=== PATIENT | female | born 1945 | race Caucasian/White ===

== ENCOUNTER → 2023-11-19 15:36 | Outpatient (REF) | payer MEDICARE, OTHER, SELFPAY | LOC: WDC 15:36 | PROVIDERS: ATTENDING PHYSICIAN Family Medicine | DX: Z12.31 Encounter for screening mammogram for malignant neoplasm of breast (principal) | CPT/HCPCS: 77063; 77067 ==

== ENCOUNTER → 2023-11-29 14:30 | Outpatient (REF) | payer MEDICARE, OTHER, SELFPAY | LOC: RAD 14:30 | PROVIDERS: ATTENDING PHYSICIAN Family Medicine | DX: Z13.820 Encounter for screening for osteoporosis (principal); M81.0 Age-related osteoporosis without current pathological fracture | CPT/HCPCS: 77080 ==

== ENCOUNTER 2024-08-04 22:45 | Emergency (ER) | payer MEDICARE, OTHER, SELFPAY ==
[2024-08-04 22:52] VITALS: BP 120/72
--- NOTE | 2024-08-05 00:54 | ED.MUSCINJ ---
HPI-Injury
General
Chief Complaint: Fall
Source: patient
Exam Limitations: none
Time Seen by Provider: 08/05/24 00:53
Nursing documentation reviewed up to this point in time: agreed with
History of Present Illness-Injury
Initial Injury comments:
79-year-old female with history of CPAP use, HTN, HLD, NIDDM, glaucoma states 18 hours ago she slipped on paper in her kitchen, fell onto her left side, struck back of head on cabinet on way down. Denies feeling lightheaded or dizzy prior to fall.
Spent the next 18 hours trying to crawl and get her cane to get up to no avail. Finally called her friend this evening who called EMS.
Has pain in left wrist, elbow, hip and knee. Denies neck or back pain.
No LOC, not anticoagulated.
Past History
Past History
ED Past Medical History: HTN, Hypercholesterolemia, NIDDM and Other (sleep apnea, diverticulosis)
ED Past Surgical History: Appendectomy and Gynecological (right Oophorectomy and tube removed)
Social History
Tobacco: Non-smoker
Alcohol: None
Personal: Single
Living: alone
Review of Systems
Review of Systems
Allergies reviewed?: Yes
All Other Systems: ROS reviewed and negative except as documented in HPI and ROS
Constitutional: Denies fever
Respiratory: Denies trouble breathing
Cardiac: Denies chest pain or syncope
ABD/GI: Denies abdominal pain, nausea, vomiting or diarrhea
: Reports incontinence (chronic); Denies dysuria, frequency, difficulty voiding or urgency
Musculoskeletal: Reports other (pain left hip, wrist, elbow, knee.); Denies neck pain or back pain
Skin: Reports other (scrape left forearm)
Neurological: Reports no symptoms
Phy Exam
Physical Exam
Physical Exam:
GENERAL: No acute distress. A&Ox3.
CONSTITUTIONAL: Afebrile.
EYES: clear, conjunctivae normal
ENMT: moist mucus membranes, Pharynx nl, TMs normal
RESPIRATORY: Regular respirations, nonlabored, lungs clear.
CARDIOVASCULAR: Regular rate and rhythm, no murmurs, no rubs.
GI: Soft, nontender, normal BS
MUSCULOSKELETAL: No spinal bony tenderness. No significant left hip tenderness but groin pain with SLR. Tender left left wrist base of thumb. Left knee tender medially. Moves with ease. Well perfused.
SKIN: Warm, dry, pink
PSYCH: Normal mood and affect. Well kept, interactive and appropriate
NEUROLOGIC: Awake, alert and oriented. No focal neurological deficits. Strength equal throughout.
Injury Course
Orders/Labs/Results
Orders:
Orders
08/05/24 01:08
Hip, Left 2-3 Views [CR Hip - LT w/wo Pel 2-3 Vw*] Urgent
Comment:
Reason For Exam: pain after fall
Include a pelvis x-ray?: Yes
Knee, Left 4 or More Views [CR Knee - Left 4 Or More View*] Urgent
Comment:
Reason For Exam: pain after fall
Wrist, Left 3 Views CR [CR Wrist - Left Min 3 Views] Urgent
Comment:
Reason For Exam: pain after fall
08/05/24 01:13
CR Elbow - Left Min 3 Views Urgent
Comment:
Reason For Exam: pain after fall
08/05/24 01:26
CPK Isoenzyme Urgent
Complete Blood Count/With Diff Urgent
Comprehensive Metabolic Panel Urgent
08/05/24 02:09
0.9% Sodium Chloride 1000 ml [Nss] 1,000 ml IV BOLUS
08/05/24 03:14
Urinalysis Reflex To Culture Urgent
Date Specimen was Collected: 08/05/24
Time Specimen was Collected: 03:13
Urine Microscopic Reflex Cult Urgent
Urine Culture Urgent
RUBINA Source: U
Specimen Description:
Date Specimen was Collected: 08/05/24
Time Specimen was Collected: 03:13
Abnormal Lab Results
08/05/24 08/05/24
01:26 03:14
WBC 12.7 H 10^3/uL
(4.8-10.8)
Abs Immat Gran (auto) 0.1 H 10^3/uL
(0-0.05)
Absolute Neuts (auto) 9.5 H 10^3/uL
(1.4-6.5)
Absolute Monos (auto) 1.0 H 10^3/uL
(0.1-0.6)
Lymphocytes % 16.5 L %
(20.5-51.1)
Glucose 253 H mg/dl
(70-99)
Total Bilirubin 1.7 H mg/dl
(0.2-1.3)
Total Creatine Kinase 367 H U/L
(30-135)
Urine Ketones 3+ A
(Negative)
Leukocyte Esterase Rfl 1+ A
(Negative)
Urine RBC 3-6 A /HPF
(0-2)
Urine WBC (Reflex) 21-25 A /HPF
(0-5)
Urine Bacteria (Reflex) Few A
(Negative)
Urine Glucose 4+ A
(Negative)
Urine Albumin (Reflex) 1+ A
(Neg - Trace)
08/05/24 01:26
08/05/24 01:26
MDM/Problems Addressed
MDM/Problems Addressed:
79-year-old female with history of CPAP use, HTN, HLD, NIDDM, glaucoma states 18 hours ago she slipped on paper in her kitchen, fell onto her left side, struck back of head on cabinet on way down. Denies feeling lightheaded or dizzy prior to fall.
Spent the next 18 hours trying to crawl and get her cane to get up to no avail. Finally called her friend this evening who called EMS.
Has pain in left wrist, elbow, hip and knee. Denies neck or back pain.
No LOC, not anticoagulated.
1:30 AM:
CBC with mild leukocytosis most likely reactive to the trauma
CMP: No clinically significant abnormality.
CPK: 367
All x-rays initially read by this examiner: Left elbow, left wrist, left knee, left hip: All with no acute abnormality
3:00 a.m.
Case discussed with Dr. Alvarez who will await U/A results, treat if needed and discharge pt
*Critical Care Note
Total Time (30-74mins, 75-104mins- exclusive of procedures): Not Applicable
ED Attending Note
-
Portions of this chart may have been created with voice recognition software.� Occasional wrong word or��sound alike� substitutions may have occurred due to the inherent limitations of voice recognition software.
Discharge Plan
Departure
Patient Disposition: Home (Routine Discharge)
Date of Disposition: 08/05/24
Time of Disposition: 04:13
Patient with high blood pressure during this ER visit?: No
Condition: Fair
Discharge Problem:
Fall from slip, trip, or stumble, Contusion of left wrist, Contusion of left knee, Contusion of left hip
Instructions: Preventing falls in adults, Minor Head Injury, Adult ED, Contusion
Prescriptions:
No Action
metformin 500 MG tablet extended release 24 hr
1,000 mg PO DAILY
ezetimibe 10 MG tablet
10 mg PO DAILY
valsartan 80 MG tablet
160 mg PO DAILY
aspirin 81 MG tablet,chewable
81 mg PO DAILY
ketoconazole 1 APPLIC cream
1 applic topical PRN PRN (Reason: As prescribed)
omega-3 fatty acids-fish oil [Fish Oil] 1,000 MG capsule
1 cap PO DAILY
calcium carbonate-mag hydroxid [Antacid (calcium carb-mag hyd)] 1 EACH tablet,chewable
1 ea PO DAILY
cyanocobalamin (vitamin B-12) 1,000 MCG tablet
1,000 mcg PO DAILY
cholecalciferol (vitamin D3) 1,000 UNITS tablet
1,000 units PO DAILY
hydrocortisone acetate 25 MG suppository
25 mg ND BID Qty: 14 1RF
Referrals:
Cristian Spencer MD [Family Provider] -
Activity Restrictions/Additional Instructions:
As we discussed, Tylenol 1000 mg every 6 hours up to 3 times a day as needed for pain.
Drink at least six 8 ounce glasses of water a day
Interventions
Interventions:
*Risk Screen - Suicide Last Done: 08/04/24 22:52
*General Assessment Last Done: 08/05/24 01:52
*Neglect/Abuse Screening Last Done: 08/04/24 22:52
*ED COVID-19 Vaccine History Last Done: 08/05/24 01:52
*Nursing Disposition Last Done: 08/05/24 03:30
ED- Neurological Assessment Last Done: 08/05/24 01:52
Discharge Date and Time
Discharge Date/Time: 08/05/24 03:30
Print Language: IRISH
[2024-08-05 01:27] VITALS: BP 118/70
[2024-08-05 01:36] LABS: % Basophils 0.2 % (0-2); % Eosinophils 0.3 % (0-6); % Immature Granulocytes 0.5 % (0-0.5); % Lymphocytes 16.5 % (20.5-51.1); % Monocytes 7.7 % (1.7-9.3); % Neutrophils 74.8 % (42.2-75.2); Absolute Immature Granulocytes 0.1 10^3/uL (0-0.05); Absolute Lymphocytes 2.1 10^3/uL (1.2-3.4); Absolute Neutrophils 9.5 10^3/uL (1.4-6.5); Hemoglobin 14.9 g/dL (12.0-16.0); Mean Corp Hgb Conc. 33.9 g/dL (33.0-37.0); Mean Corpuscular Hgb 29.3 pg (27.0-31.0); Mean Corpuscular Volume 86.4 fL (81.0-99.0); Mean Platelet Volume 9.3 fL (7.4-10.4); Nucleated Red Blood Cells % 0 %; Platelet Count 298 10^3/uL (130-400); Red Blood Cell Count 5.09 10^6/uL (4.20-5.40); Red Cell Dist. Width 12.5 % (11.5-14.5); White Blood Cell Count 12.7 10^3/uL (4.8-10.8)
[2024-08-05 01:55] LABS: ALT (SGPT) 19 U/L (0-35); AST (SGOT) 30 U/L (14-36); Albumin 3.7 g/dl (3.5-5.0); Alkaline Phosphatase 77 U/L (38-126); Blood Urea Nitrogen 16 mg/dl (7-17); Calcium 9.1 mg/dl (8.4-10.2); Carbon Dioxide 24 mmol/L (22-30); Chloride 101 mmol/L (98-107); Estimated Creatinine Clearance 72 ml/min; Glucose 253 mg/dl (70-99); Potassium 4.7 mmol/L (3.5-5.1); Sodium 136 mmol/L (135-145); Total Bilirubin 1.7 mg/dl (0.2-1.3); Total CK 367 U/L (30-135); Total Protein 6.4 g/dl (6.3-8.2); eGFR > 60.00
[2024-08-05 02:00] VITALS: BP 108/70
[2024-08-05 02:17] LABS: CKMB 2.7 ng/ml (0.0-3.4)
[2024-08-05] MEDS: NSS 1000 IV (02:31)
[2024-08-05 03:00] VITALS: BP 99/53
[2024-08-05 03:44] LABS: Urine Albumin 1+ (Neg - Trace); Urine Bilirubin Negative (Negative); Urine Character Clear (Clear); Urine Color Yellow; Urine Glucose 4+ (Negative); Urine Ketone 3+ (Negative); Urine Leukocyte 1+ (Negative); Urine Nitrite Negative (Negative); Urine Occult Blood Negative (Negative); Urine Specific Gravity 1.025 (<1.030); Urine Urobilinogen Negative (Neg - 1+)
[2024-08-05 04:00] VITALS: BP 119/52
[2024-08-05 04:52] LABS: Urine Squamous Cell >30 /LPF (Few)
[2024-08-05 04:54] LABS: Urine Bacteria Few (Negative); Urine Mucus Few; Urine White Cell 21-25 /HPF (0-5)
== END 2024-08-05 03:30 | disposition home or self-care (01) ==
LOC: EMR 22:45
PROVIDERS: Registered Nurse; EMERGENCY PHYSICIAN Student in an Organized Health Care Education/Training Program; FAMILY PHYSICIAN Family Medicine
DX: S60.212A Contusion of left wrist, initial encounter (principal); S80.02XA Contusion of left knee, initial encounter; S70.02XA Contusion of left hip, initial encounter; W01.198A Fall on same level from slipping, tripping and stumbling with subsequent striking against other object, initial encounter; E11.9 Type 2 diabetes mellitus without complications; E78.00 Pure hypercholesterolemia, unspecified; I10 Essential (primary) hypertension; G47.30 Sleep apnea, unspecified; Z90.49 Acquired absence of other specified parts of digestive tract; Z90.721 Acquired absence of ovaries, unilateral
CPT/HCPCS: 99284; 96360; 73080; 73110; 73502; 73564; 80053; 81003; 81015; 82550; 82553; 85025; 87077; 87086; 87147

== ENCOUNTER → 2024-10-29 13:46 | Outpatient (REF) | payer MEDICARE, OTHER, SELFPAY | LOC: RAD 13:46 | PROVIDERS: ATTENDING PHYSICIAN Urology; FAMILY PHYSICIAN Family Medicine | DX: B37.2 Candidiasis of skin and nail (principal); N32.81 Overactive bladder; M62.89 Other specified disorders of muscle | CPT/HCPCS: 76770; 76856 ==

== ENCOUNTER → 2024-11-12 11:30 | Outpatient (REF) | payer MEDICARE, OTHER, SELFPAY | LOC: RCS 11:30 | PROVIDERS: ATTENDING PHYSICIAN Internal Medicine Cardiovascular Disease; FAMILY PHYSICIAN Family Medicine | DX: R06.09 Other forms of dyspnea (principal) | CPT/HCPCS: 93306 ==

== ENCOUNTER → 2024-11-20 12:55 | Outpatient (REF) | payer MEDICARE, OTHER, SELFPAY | LOC: WDC 12:55 | PROVIDERS: ATTENDING PHYSICIAN Obstetrics & Gynecology Gynecology; FAMILY PHYSICIAN Family Medicine | DX: Z12.31 Encounter for screening mammogram for malignant neoplasm of breast (principal) | CPT/HCPCS: 77063; 77067 ==

== ENCOUNTER → 2024-12-01 07:24 | Outpatient (REF) | payer MEDICARE, OTHER, SELFPAY | LOC: RCS 07:24 | PROVIDERS: ATTENDING PHYSICIAN Internal Medicine Cardiovascular Disease; FAMILY PHYSICIAN Family Medicine | DX: R06.09 Other forms of dyspnea (principal) | CPT/HCPCS: 78452; 93017; A9500; J2785 ==

== ENCOUNTER → 2025-03-18 | Outpatient (REF) | payer MEDICARE, OTHER, SELFPAY | LOC: DHSLP | PROVIDERS: ATTENDING PHYSICIAN Internal Medicine Critical Care Medicine; FAMILY PHYSICIAN Family Medicine | DX: G47.33 Obstructive sleep apnea (adult) (pediatric) (principal) | CPT/HCPCS: 95811 ==